=== PATIENT | female | born 1990 | race Caucasian/White ===

== ENCOUNTER 2019-04-12 04:01 | Inpatient (IN) | payer SELFPAY ==
[2019-04-12] MEDS ORDERED: LACTATED RINGERS 1,000 ML ONE (05:24)
[2019-04-12] MEDS ORDERED: LACTATED RINGERS 1,000 ML IV ONE (05:39)
[2019-04-12] MEDS ORDERED: PEPCID IV ONE (05:50)
[2019-04-12] MEDS ORDERED: BICITRA PO ONE (05:50)
[2019-04-12] MEDS ORDERED: REGLAN IV ONE (05:50)
--- NOTE | 2019-04-12 05:57 | History and Physical Report ---
History of Present Illness Date of examination: 04/12/19 Date of admission: 04/12/19 05:25 Chief complaint: Term 38+wks with SROM, 5cm dilated with previous delivery in [place]. History of present illness: 28 yr old . Term 38+wks with SROM, 5cm dilated with previous delivery in [place]. SROM at home at about 0230 HRS today. EDC 04/22/2019. Past History Past Surgical History: section - Obstetrical History Expected Date of Delivery: 04/22/19 Actual Gestation: 38 Week(s) 4 Day(s) : 2 Para: 1 Medications and Allergies Allergies Allergy/AdvReac Type Severity Reaction Status Date / Time No Known Allergies Allergy Unverified 04/12/19 05:37 Active Meds: Active Medications Lactated Ringer's (Lactated Ringers) 1,000 mls @ 999 mls/hr IV BOLUS ONE Stop: 04/12/19 06:39 Review of Systems All systems: negative - Vital Signs Vital signs: Vital Signs Pulse BP 87 126/80 04/12/19 04:16 04/12/19 04:16 Temp Pulse Resp BP Pulse Ox 87 126/80 04/12/19 04:16 04/12/19 04:16 - Physical Exam Breasts: Positive: deferred Lungs: Positive: Clear to auscultation, Normal air movement Abdomen: Positive: normal appearance, distention. Negative: tenderness - Obstetrical FHR: auscultation normal Uterine Contraction Pattern: Irregular Results All other labs normal. Assessment and Plan - Patient Problems (1) SROM (spontaneous rupture of membranes) Current Visit: Yes Status: Acute (2) with 38 completed weeks gestation Current Visit: Yes Status: Acute (3) Previous delivery, antepartum Current Visit: Yes Status: Acute Plan to address problem: Details of prior not immediately available. All risks and benefits of present circumstances were discussed. All questions from the patient were answered. She was fully understanding and gave her consent for a repeat delivery.
[2019-04-12 06:00] LABS: Basophils % (Auto) 0.4 % (0.0-1.8); Eosinophils # (Auto) 0.2 K/mm3 (0.0-0.4); Eosinophils % (Auto) 2.1 % (0.0-4.3); Hematocrit 37.8 % (30.3-42.9); Lymphocytes # (Auto) 1.8 K/mm3 (1.2-5.4); Mean Corpuscular HGB Conc 34 % (30-34); Mean Corpuscular Volume 94 fl (79-97); Monocytes # (Auto) 0.6 K/mm3 (0.0-0.8); Monocytes % (Auto) 7.7 % (0.0-7.3); Platelet Count 189 K/mm3 (140-440); Red Blood Count 4.04 M/mm3 (3.65-5.03); Red Cell Distribution Width 13.8 % (13.2-15.2)
[2019-04-12] MEDS ORDERED: ANCEF/STERILE WATER 2 GM/20 ML 2 GM/20 ML SYRINGE IV NR (06:00)
[2019-04-12] MEDS ORDERED: PITOCin/NS 20 UNIT/1000ML DRIP 20 UNITS/1,000 ML BAG IV SCH ×2 (06:00→08:00)
[2019-04-12] MEDS ORDERED: LACTATED RINGERS 1,000 ML IV SCH (06:00)
[2019-04-12] MEDS ORDERED: DILAUDID IV PRN ×2 (06:19)
[2019-04-12] MEDS ORDERED: BENADRYL IV PRN (06:19)
[2019-04-12] MEDS ORDERED: ZOFRAN IV PRN (06:19)
--- NOTE | 2019-04-12 06:19 | Anesthesia Consultation ---
Anesthesia Consult and Med Hx Date of service: 04/12/19 - Airway Anesthetic Teeth Evaluation: Good ROM Head & Neck: Adequate Mental/Hyoid Distance: Adequate Mallampati Class: Class II Intubation Access Assessment: Probably Good - Pulmonary Exam CTA: Yes - Cardiac Exam Cardiac Exam: RRR - Pre-Operative Health Status ASA Pre-Surgery Classification: ASA2, Emergency Proposed Anesthetic Plan: Spinal - Pulmonary Hx Smoking: No Hx Asthma: No Hx Respiratory Symptoms: No SOB: No COPD: No Home Oxygen Therapy: No Hx Pneumonia: No Hx Sleep Apnea: No - Cardiovascular System Hx Hypertension: No Hx Coronary Artery Disease: No Hx Heart Attack/AMI: No Hx Angina: No Hx Percutaneous Transluminal Coronary Angioplasty (PTCA): No Hx Cardia Arrhythmia: No Hx Pacemaker: No Hx Internal Defibrillator: No Hx Valvular Heart Disease: No Hx Heart Murmur: No Hx Peripheral Vascular Disease: No - Central Nervous System Hx Neuromuscular Disorder: No Hx Seizures: No CVA: No Hx Back Pain: No Hx Psychiatric Problems: No - Gastrointestinal Hx Ulcer: No Hx Gastroesophageal Reflux Disease: No - Endocrine Hx Renal Disease: No Hx End Stage Renal Disease: No Hx Cirrhosis: No Hx Liver Disease: No Hx Insulin Dependent Diabetes: No Hx Non-Insulin Dependent Diabetes: No Hx Thyroid Disease: No Hx Hypothyroidism: No Hx Hyperthyroidism: No - Hematic Hx Anemia: No Hx Sickle Cell Disease: No - Other Systems Hx Alcohol Use: No Hx Substance Use: No Hx Cancer: No Hx Obesity: No
--- NOTE | 2019-04-12 06:19 | Anesthesia Day of Surgery ---
Anesthesia Day of Surgery - Day of Surgery Patient Examined: Yes Patient H&P Reviewed: Yes Patient is NPO: Yes Beta Blockers: No Cardiac Clearance: No Pulmonary Clearance: No Martir's Test: N/A
[2019-04-12] MEDS ORDERED: DEXMEDETOMIDINE IV ONE (06:37)
[2019-04-12] MEDS ORDERED: WATER FOR IRRIG STERILE IR ONE (06:50)
[2019-04-12] MEDS ORDERED: NACL 0.9% IR ONE (06:50)
[2019-04-12] MEDS ORDERED: NEO SYNEPHRINE ONE (06:52)
[2019-04-12] MEDS ORDERED: SODIUM CHLORIDE FLUSH SYRINGE 10 ML IV NR (07:00)
[2019-04-12] MEDS ORDERED: ZOFRAN ONE (07:05)
[2019-04-12] MEDS ORDERED: TORADOL ONE (07:08)
--- NOTE | 2019-04-12 07:44 | Operative Report ---
Operative Report Operative Report: Date of surgery: 04/12/2019 Preoperative diagnoses:SROM, Term , Previous . Postoperative diagnoses: The same. Operation: delivery Surgeon:Shey Cuellar MD Site Engineer: GAYE Ashton Anesthesia: Spinal block Estimated blood loss: 300 mL Complications: None Findings: Live baby girl, Apgars 9/9, 7lbs in cephalic presentation. The uterus was thinned out over the lower segment. otherwise grossly normal. Both ovaries and tubes were grossly normal. No adhesions were encountered. Procedure in detail: The patient was taken to the operating room and given a spinal block. Patient was placed in the straight supine position and a Snell catheter was inserted. The patient was prepped in the abdomen. The drapes were placed. A timeout was done. With the go ahead from the sales assistant entertainment and media, a Pfannenstiel incision was made. This incision was carried across the subcutaneous layer to the fascia which was also divided transversely. The recti abdominis muscle flaps were stripped from the fascia using a combination of blunt and sharp dissections. The muscles were in the midline to gain access to the anterior parietal peritoneum which was divided after excluding any underlying viscera. The access to the peritoneal cavity was then widened by manual stretching. The bladder blade was applied. The utero vesical peritoneal flap was divided transversely allowing the bladder to be displaced caudally. The uterine incision was placed in the lower segment transversely. The uterine incision was carried to the decidual layer. The uterine incision was extended on both sides using the bandage scissors. The amniotic sac was ruptured with clear fluid. The head was lifted out of the false maternal pelvis and delivered through the incision using fundal pressure. The airways were bulb suctioned beginning with the mouth. Continuing fundal pressure combined with traction on the mandibular processes of the jaw delivered the rest of the baby. The umbilical cord was double clamped and divided. The baby was carefully transferred to the pediatric team. The placenta was manually removed from the uterine cavity. The uterine cavity was explored and was empty of any placental remnants. The uterine incision was repaired in 1 layers with #1 Vicryl. The surgical line on the uterus was hemostatic. Blood and clots were cleared from the peritoneal cavity. The anterior parietal peritoneum was repaired with #1 Vicryl. The fascia was repaired with #1 Vicryl. The subcutaneous layer was made hemostatic using the Bovie before the skin was closed subcuticularly with 4-0 vicryl.
--- NOTE | 2019-04-12 07:54 | Post Anesthesia Evaluation ---
- Post Anesthesia Evaluation Patient Participated: Yes Airway Patent: Yes Stable Respiratory Function: Yes Nausea/Vomiting: No Temp > 96.8F: Yes Pain Manageable: Yes Adequeate Hydration: Yes Anesthesia Complications: No Block Receding Appropriately: Yes Patient on Ventilator: No
[2019-04-12] MEDS ORDERED: LANSINOH TP PRN (08:00)
[2019-04-12] MEDS ORDERED: TYLENOL PO PRN (08:00)
[2019-04-12] MEDS ORDERED: TUCKS PAD TP PRN (08:00)
[2019-04-12] MEDS ORDERED: MORPHINE IV PRN (08:00)
[2019-04-12] MEDS ORDERED: SODIUM CHLORIDE FLUSH SYRINGE 10 ML IV PRN (08:00)
[2019-04-12] MEDS ORDERED: NARCAN 0.4 MG/1 ML IV PRN (08:00)
[2019-04-12] MEDS ORDERED: PITOCin/NS 20 UNIT/1000ML DRIP 20,000 MILLIUNITS/1,000 ML BAG IV ONE (10:40)
[2019-04-12] MEDS: D5LR 1,000 ML IV SCH ×2 (10:47→18:42)
[2019-04-12] MEDS: ANCEF/NS 1 GM/50 ML 1 GM/50 ML BAG IV SCH (15:39)
[2019-04-12] MEDS: TORADOL IV PRN (16:12)
[2019-04-12 20:44] LABS: Hemoglobin 11.4 gm/dl (10.1-14.3)
[2019-04-13] MEDS: TORADOL IV PRN (00:24)
[2019-04-13] MEDS: ANCEF/NS 1 GM/50 ML 1 GM/50 ML BAG IV SCH (00:51)
[2019-04-13] MEDS: D5LR 1,000 ML IV SCH (06:07)
[2019-04-13] MEDS: PRENATAL VITAMIN PO SCH (09:54)
[2019-04-13] MEDS: NORCO 5/325 PO PRN ×2 (09:55→18:07)
[2019-04-13] MEDS: FEOSOL PO SCH (09:55)
--- NOTE | 2019-04-13 10:13 | Progress Note ---
Assessment and Plan A: POD#1 s/p Repeat c/s Pain well controlled VSS P: Routine PP/PO orders Encouraged ambulation Abdominal Binder Anticipate discharge home in 24-48 hrs Subjective - Subjective Date of service: 04/13/19 Principal diagnosis: POD#1 s/p Repeat c/s Interval history: See H&P and delivery note Patient reports: appetite normal, voiding normally, pain well controlled, flatus, ambulating normally, no bowel movement : doing well, nursing well Objective - Vital Signs Latest vital signs: Vital Signs Temp Pulse Resp BP 04/13/19 00:30 98.4 F 66 18 102/79 04/12/19 20:00 98.4 F 78 18 100/64 04/12/19 16:20 98.3 F 63 20 101/57 04/12/19 13:46 64 102/62 04/12/19 12:05 98.1 F 67 20 89/60 Intake and Output 04/12/19 04/13/19 04/13/19 23:59 07:59 15:59 Intake Total 1296.068 5441 Output Total 600 1400 Balance 859.583 -400 Intake: IV 6457.747 5356 ANCEF/NS 1 GM/50 ML 1 gm 50 In 50 ml @ 100 mls/hr IV Q8H NICK Rx#:[id number] D5lr 1,000 ml @ 125 mls/ 761.362 9173 hr IV DIRECT NICK Rx#: [id number] Oral 120 Intake, Free Water 300 Output: Urine 600 1400 Indwelling Catheter 600 600 Void 800 Other: Total, Intake Amount 120 Total, Output Amount 600 800 # Voids Void 1 - Exam Breasts: Present: normal, Cardiovascular: Present: Regular rate, Normal S1, Normal S2, No murmurs Lungs: Present: Clear to auscultation, Normal air movement Abdomen: Present: normal appearance, soft, tenderness (As expected post-op), normal bowel sounds. Absent: distention Vulva: both: normal Uterus: Present: firm, fundal height at umbilicus Extremities: Present: normal Deep Tendon Reflex Grade: Normal +2 Incision: Present: normal, dry, intact, dressed (Pressure dressing CDI)
[2019-04-13] MEDS: IBUPROFEN PO PRN (21:26)
[2019-04-14] MEDS: NORCO 5/325 PO PRN ×2 (01:47→09:40)
[2019-04-14] MEDS: IBUPROFEN PO PRN ×2 (06:13→18:32)
[2019-04-14] MEDS: PRENATAL VITAMIN PO SCH (09:37)
[2019-04-14] MEDS: FEOSOL PO SCH (09:37)
--- NOTE | 2019-04-14 11:08 | Progress Note ---
Assessment and Plan - Patient Problems (1) S/P repeat low transverse Current Visit: Yes Status: Acute Plan to address problem: POD 2 - stable Continue routine postop orders Discharge to home today Follow up at [facility] as needed or in 1 week for incision check Subjective - Subjective Date of service: 04/14/19 Principal diagnosis: POD #2; s/p Repeat LTCS Interval history: see H&P, Operative Report and PP/DESK REPRESENTATIVE Progress Note Patient reports: appetite normal, voiding normally, pain well controlled, flatus, ambulating normally, no dizzy ambulation [place]: doing well Objective - Vital Signs Latest vital signs: Vital Signs Temp Pulse Resp BP BP Pulse Ox 04/14/19 09:32 97.6 F 79 18 93/56 96 04/14/19 00:00 98.4 F 67 19 108/79 04/13/19 17:35 98.3 F 67 18 112/61 99 - Exam Cardiovascular: Present: Regular rate Lungs: Present: Clear to auscultation, Normal air movement Abdomen: Present: normal appearance, soft Vulva: both: normal Uterus: Present: normal, firm, fundal height at umbilicus Extremities: Present: normal Incision: Present: normal, dry, intact, other (steri strips in place) Comments: scant lochia
--- NOTE | 2019-04-14 11:11 | Discharge Summary ---
Providers - Providers Date of Admission: 04/12/19 05:25 Date of discharge: 04/14/19 Attending physician: ANJANA BIRCH MD Primary care physician: ANJANA BIRCH MD Hospitalization Reason for admission: section, IUP at term Delivery: Procedure: repeat low transverse Episiotomy: none Laceration: none Incision: normal, dry, intact, other (steri strips in place) Other procedures: none complications: none Discharge diagnosis: IUP at term delivered [place] baby: female Hospital course: Uncomplicated Condition at discharge: Stable Disposition: DC-01 TO HOME OR SELFCARE - Discharge Diagnoses (1) S/P repeat low transverse Status: Acute Plan - Discharge Medications Prescriptions: Ibuprofen [Motrin 800 MG tab] 800 mg PO Q6H PRN #30 tablet PRN Reason: Pain, Mild (1-3) HYDROcodone/APAP 5-325 [Rush 5/325] 1 - 2 each PO Q6HR PRN 7 Days #30 tablet PRN Reason: Pain - Provider Discharge Summary Activity: routine, no sex for 6 weeks, no heavy lifting 4 weeks, no strenuous exercise Diet: routine Instructions: routine Additional instructions: [] Smoking cessation referral if applicable(refer to patient education folder for contact #) [] Refer to [facility] Booklet Call your doctor immediately for: * Fever > 100.5 * Heavy vaginal bleeding ( >1 pad per hour) * Severe persistent headache * Shortness of breath * Reddened, hot, painful area to leg or breast * Drainage or odor from incision. * Keep incision clean and dry at all times and follow doctor's instructions regarding bathing/showering - Follow up plan Follow up: ANJANA BIRCH MD [Primary Care Provider] - 7 Days (Follow up at [facility] as needed or in 1 week for incision check)
[2019-04-14 18:07] VITALS: BP 108/74
== END 2019-04-14 18:36 | disposition home or self-care (01) | DRG 788 ==
LOC: TRG 04:01 → APU 05:25 → OB 09:15
PROVIDERS: ADMIT Obstetrics & Gynecology; ATTEND Obstetrics & Gynecology
PROC: 10D00Z1 Extraction of Products of Conception, Low, Open Approach (ICD-10-PCS; principal; 2019-04-12)
DX: O34.211 Maternal care for low transverse scar from previous cesarean delivery (principal); Z3A.38 38 weeks gestation of pregnancy; Z37.0 Single live birth
CPT/HCPCS: 36415; 85014; 85018; 85025; 86592; 86850; 86900; 86901; G0378; J0690; J1885; J2270; J2370; J2405; J2590; J2765; J3490; J7120; J7121